=== PATIENT | male | born 1935 | race Caucasian/White ===

== ENCOUNTER 2018-04-20 10:57 | Inpatient (IN) ==
--- NOTE | 2018-04-21 13:17 | Internal Med History&Physical ---
Date of Encounter: 04/21/18 Time of Encounter: 13:12 Assessment and Plan (1) Status post-operative repair of closed fracture of left hip Current visit: Yes Status: Acute Pain controlled with Percocet. PT\OT to eval and treat. Follow up with ortho as scheduled. Will follow progress. (2) Afib Current visit: Yes Status: Acute Rate and rhythm stable. Continue Coumadin. Will follow INR Qualifiers: Atrial fibrillation type: chronic Qualified Code(s): I48.2 - Chronic atrial fibrillation (3) CAD (coronary artery disease) Current visit: Yes Status: Acute Controlled. Continue current medication. Qualifiers: Coronary Disease-Associated Artery/Lesion type: unspecified vessel or lesion type [place] vs. transplanted heart: [place] heart Associated angina: without angina Qualified Code(s): I25.10 - Atherosclerotic heart disease of [place] coronary artery without angina pectoris (4) Diabetes type 2, controlled Current visit: Yes Status: Acute Controlled with PO medication. Monitor fingerstick blood sugar. Will adjust medications as necessary. Qualifiers: Diabetes mellitus assisted insulin use: without assisted use Diabetes mellitus complication status: without complication Qualified Code(s): E11.9 - Type 2 diabetes mellitus without complications Internal Medicine - H&P: HPI Admitted From: Hospital to Hospital Transfer Plans for Post Hospital Care: Home History of present illness: Mr. Garcia is a 82 year old male admitting to inpatient rehab unit s/p left ORIF after a hip fracture from a fall at home. 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 past medical history includes: afib, CAD, DM2, hypercholesterolemia, BPH, HTN, and obesity. states pain is controlled with current pain meds. last BM yesterday. maintaining appetite and hydration. denies fever, chills, NVD, SOB or chest pain. lives at home with . Internal Medicine - H&P: Meds 3 Allergy/AdvReac Type Severity Reaction Status Date / Time No Known Drug Allergies Allergy See Verified 04/21/18 10:01 Comments All Systems PM: A 10-system review of systems was performed and is negative for pertinent findings except as documented above in the HPI. - Constitutional Constitutional: no chills, no fever(s), no night sweats - EENT Eyes: no change in vision, no discharge, no pain, no photophobia Ears: no ear discharge, no ear pain, no tinnitus Nose, mouth and throat: no dysphagia, no nasal discharge, no neck pain, no sore throat - Cardiovascular Cardiovascular ROS IM: no chest pain, no diaphoresis, no dyspnea, no lightheadedness, no palpitations, no syncope - Respiratory Respiratory: no cough, no dyspnea, no wheezing, no excessive phlegm production - Gastrointestinal Gastrointestinal: no abdominal pain, no diarrhea, no hematemesis, no hematochezia, no melena, no nausea, no vomiting - Musculoskeletal Musculoskeletal ROS IM: no numbness, no tingling - Integumentary Integumentary IM: no rash, no unusual bruising - Neurological Neurological ROS: no confusion, no convulsions, no focal weakness, no numbness, no tingling, no tremor(s) - Hematologic/Lymphatic Hematologic/Lymphatic: no easy bruising - Head Head exam: Present: atraumatic, normocephalic - Eye Eye exam: Present: PERRL, conjuntiva pink, sclera anicteric Pupils: Present: PERRL - Neck Neck exam general surgery: Present: supple, trachea midline. Absent: lymphadenopathy - Respiratory Respiratory exam: Present: CTAB. Absent: accessory muscle use, rales, rhonchi, wheezes - Cardiovascular Cardiovascular exam: Present: RRR, +S1, +S2. Absent: diastolic murmur, gallop, rubs, systolic murmur - GI/Abdominal GI/Abdominal exam: Present: normal bowel sounds, soft, no peritoneal signs. Absent: distended, tenderness - Extremities Exam Extremities exam: Present: warm, radial pulses palpable and symmetrical. Absent : calf tenderness, cyanotic, pedal edema Additional comments: left hip drsg dry and intact with slight edema surrounding incision. significant ecchymosis around incision site. - Neurological Exam Neurological exam: Present: CN II-XII intact, oriented X3, no focal deficits. Absent: pronater drift, facial droop, speech deficit - Skin Skin exam: Present: dry, intact
[2018-04-21 14:51] LABS: INR 1.5; Prothrombin Time 16.7 Seconds (9.4-12.1)
[2018-04-21] MEDS: Furosemide 40 MG TABLET PO SCH (17:16)
[2018-04-21] MEDS ORDERED: Warfarin perPT PO PRN (18:00)
[2018-04-21] MEDS ORDERED: *HR* Warfarin 5 MG TABLET PO ONE (18:00)
[2018-04-22 07:16] LABS: Basophils % 0.2 %; Eosinophils # 0.2 K/mcL (0.0-0.6); Eosinophils % 2.7 %; Hematocrit 28.5 % (37.5-50.1); Hemoglobin 9.3 g/dL (12.9-16.9); Immature Granulocytes % 0.7 % (0-4); Lymphocytes # 1.5 K/mcL (0.6-4.6); Mean Corpuscular HGB Conc 32.6 g/dL (31.6-35.5); Mean Corpuscular Hemoglobin 31.7 pg (28.0-33.3); Mean Corpuscular Volume 97.3 fL (83.0-100.0); Mean Platelet Volume 11.1 fL (9.4-12.4); Monocytes # 1.1 K/mcL (0.0-1.3); Monocytes % 12.4 %; Platelet Count 165 K/mcL (140-400); Red Blood Count 2.93 M/mcL (4.19-5.50); Red Cell Distribution Width 13.2 % (11.5-14.5)
[2018-04-22 07:26] LABS: INR 1.6; Prothrombin Time 16.9 Seconds (9.4-12.1)
[2018-04-22 07:29] LABS: Activated Partial Thrombo Time 30.6 Seconds (26.0-36.0)
[2018-04-22 07:35] LABS: BUN/Creatinine Ratio 22 (6-26); Blood Urea Nitrogen 19 mg/dL (8-23); Calcium 8.3 mg/dL (8.6-10.3); Carbon Dioxide 32 mEq/L (23-29); Chloride 99 mEq/L (98-107); Glucose 130 mg/dL (70-105); Osmolality,Calculated 286 (280-300); Potassium 3.9 mEq/L (3.5-5.1); Sodium 136 mEq/L (136-145); eGFR For African Americans > 60 (> 60); eGFR For Non-African Americans > 60 (> 60)
[2018-04-22] MEDS: *HR* Glimepiride 2 MG TABLET PO SCH (09:09)
[2018-04-22] MEDS: Furosemide 40 MG TABLET PO SCH ×2 (09:09→17:58)
--- NOTE | 2018-04-22 13:40 | Physcial Medicine-Consult Note ---
Date of Encounter: 04/22/18 Time of Encounter: 13:00 Physical Medicine - AP (1) Status post-operative repair of closed fracture of left hip Status: Acute Assessment and plan: Good start in therapies. Will remove nichols and voiding trial. Continue rehab. Code(s): Z98.890 - Other specified postprocedural states; Z87.81 - Personal history of (healed) traumatic fracture SNOMED Code(s): 535461880 Physical Medicine - HPI - Data of Consult Requesting Physician: Bhavin Gaytan MD Primary Care Provider: Erasmo Gonzales - Consult Narrative History of present illness: Mr. Garcia is a 82 year old left handed male fell in a parking lot on 04-18-2018 sustaining a left hip fracture. He had ORIF at [facility]. His hip pain is minimal. He is moving his bowels. Appetite is good. He had post op urinary retention and has a nichols catheter. CC: Bhavin Gaytan MD Past Med Surg Social Fam HX - Past Medical History Attestation: Yes The following information was validated with the patient. Medical history: atrial fibrillation, coronary artery disease, diabetes Psychiatric history: no psych history - Past Surgical History Surgical History: orthopedic, other Additional surgical history: ablation ', left knee scope - Social History Smoking Status: Former smoker Alcohol use: occasionally Drug use: none - Family History Father Family Member Ethnicity: Non- Living Status: Age at : 68 Cause of : heart disease Hx Family Cardiac Disorders: Yes Medications and Allergies 3 Allergy/AdvReac Type Severity Reaction Status Date / Time No Known Drug Allergies Allergy See Verified 04/21/18 10:01 Comments All systems: reviewed and no additional remarkable complaints except as stated Physical Medicine - Exam - Constitutional Vitals: Temp Pulse Resp BP Pulse Ox 97.8 F 94 16 122/70 93 04/22/18 11:19 04/22/18 11:19 04/22/18 11:19 04/22/18 11:19 04/22/18 11:19 General appearance: average body habitus, cooperative, no acute distress - Head Head exam: Present: atraumatic, normocephalic - Eye Eye exam: Present: EOMI - ENT ENT exam: Present: mucous membranes moist - Neck Neck exam: Present: full ROM - Respiratory Respiratory exam: Present: CTAB - Cardiovascular Cardiovascular exam: Present: RRR - GI/Abdominal GI/Abdominal exam: Present: normal bowel sounds, soft - Extremities Exam Extremities exam: Absent: full ROM, pedal edema Additional comments: LLE not antigravity hip flexion. Distal strength is good. No CCE - Neurological Exam Neurological exam: Present: abnormal gait, alert, CN II-XII intact, oriented X3 Additional comments: Sensation intact - Psychiatric Psychiatric exam: Present: normal affect, normal mood - Skin Additional comments: Left hip incisions Physical Medicine - Results - Labs CBC & Chem 7: 04/22/18 06:43 04/22/18 06:43 Labs: Short CBC 04/22/18 Range/Units 06:43 WBC 9.0 (4.3-11.1) K/mcL Hgb 9.3 L (12.9-16.9) g/dL Hct 28.5 L (37.5-50.1) % Plt Count 165 (140-400) K/mcL Neutrophils # 6.0 (1.6-8.9) K/mcL BMP 04/22/18 06:43 Sodium 136 Potassium 3.9 Chloride 99 Carbon Dioxide 32 H BUN 19 Creatinine 0.87 Glucose 130 H Calcium 8.3 L Anemia. Hyperglycemia Consult Discharge Plan - Plan Referrals: Erasmo Gonzales [Primary Care Provider] -
[2018-04-22] MEDS: *HR* OxyCODONE/APAP 5/325 TABLET PO PRN (14:33)
--- NOTE | 2018-04-22 15:03 | Internal Med Progress Note ---
Date of Encounter: 04/22/18 Time of Encounter: 15:01 - Assessment and plan (1) Status post-operative repair of closed fracture of left hip Current Visit: Yes Status: Acute Assessment and plan: Continue current pain medication. Continue PT\OT. Will follow progress. Follow up with ortho as scheduled. (2) Afib Current Visit: Yes Status: Acute Assessment and plan: Rate and rhythm controlled. Continue current medication. Qualifiers: Atrial fibrillation type: chronic Qualified Code(s): I48.2 - Chronic atrial fibrillation (3) CAD (coronary artery disease) Current Visit: Yes Status: Acute Assessment and plan: Stable. Continue current medication. Qualifiers: Coronary Disease-Associated Artery/Lesion type: unspecified vessel or lesion type [place] vs. transplanted heart: [place] heart Associated angina: without angina Qualified Code(s): I25.10 - Atherosclerotic heart disease of [place] coronary artery without angina pectoris (4) Diabetes type 2, controlled Current Visit: Yes Status: Acute Assessment and plan: Controlled with PO medication. Monitor fingerstick blood sugar. Will adjust medications as necessary. Qualifiers: Diabetes mellitus termite control service representative insulin use: without termite control service representative use Diabetes mellitus complication status: without complication Qualified Code(s): E11.9 - Type 2 diabetes mellitus without complications - Time Spent With Patient less than 15 minutes - Subjective Interval history: Participating well with therapy. States pain is controlled with current pain medication. Bowels move this morning. Will discontinue Hollingsworth catheter today. Denies fever, chills, nausea, vomiting or diarrhea. Maintaining appetite and hydration. - Constitutional Vitals: Temp Pulse Resp BP Pulse Ox 97.8 F 94 16 122/70 93 04/22/18 11:19 04/22/18 11:19 04/22/18 11:19 04/22/18 11:19 04/22/18 11:19 General appearance: Present: cooperative, A&O X 3, pleasant, no acute distress, answers questions appropriately - Head Head exam: Present: atraumatic, normocephalic - Eye Eye exam: Present: PERRL, conjuntiva pink, sclera anicteric Pupils: Present: PERRL - Neck Neck exam general surgery: Present: supple, trachea midline. Absent: lymphadenopathy - Respiratory Respiratory exam: Present: CTAB. Absent: accessory muscle use, rales, rhonchi, wheezes - Cardiovascular Cardiovascular exam: Present: RRR, +S1, +S2. Absent: diastolic murmur, gallop, rubs, systolic murmur - GI/Abdominal GI/Abdominal exam: Present: normal bowel sounds, soft, no peritoneal signs. Absent: distended, tenderness - Extremities Exam Extremities exam: Present: warm, radial pulses palpable and symmetrical. Absent : calf tenderness, cyanotic, pedal edema - Incison Comments: Left hip dressing dry and intact. No drainage. Moderate amount of ecchymosis surrounding incision site. - Neurological Exam Neurological exam: Present: CN II-XII intact, oriented X3, no focal deficits. Absent: pronater drift, facial droop, speech deficit - Skin Skin exam: Present: dry, intact Internal Medicine: Result - Labs CBC & Chem 7: 04/22/18 06:43 04/22/18 06:43 Labs: Short CBC 04/22/18 Range/Units 06:43 WBC 9.0 (4.3-11.1) K/mcL Hgb 9.3 L (12.9-16.9) g/dL Hct 28.5 L (37.5-50.1) % Plt Count 165 (140-400) K/mcL Neutrophils # 6.0 (1.6-8.9) K/mcL BMP 04/22/18 06:43 Sodium 136 Potassium 3.9 Chloride 99 Carbon Dioxide 32 H BUN 19 Creatinine 0.87 Glucose 130 H Calcium 8.3 L - ABG Interpretation ABG results: PT/INR, D-dimer PT 16.9 Seconds (9.4-12.1) H 04/22/18 06:43 - VTE Documentation of Mechanical Device: Graduated compression elastic hosiery Consult Discharge Plan - Plan Referrals: Erasmo Gonzales [Primary Care Provider] -
[2018-04-22] MEDS: *HR* Warfarin 5 MG TABLET PO SCH (17:58)
[2018-04-23 07:17] LABS: INR 1.7; Prothrombin Time 18.8 Seconds (9.4-12.1)
[2018-04-23] MEDS: Furosemide 40 MG TABLET PO SCH ×2 (08:20→16:50)
[2018-04-23] MEDS: *HR* Glimepiride 2 MG TABLET PO SCH (08:21)
[2018-04-23] MEDS: Acetaminophen 325 MG TABLET PO PRN (08:30)
--- NOTE | 2018-04-23 09:45 | Internal Med Progress Note ---
Date of Encounter: 04/23/18 Time of Encounter: 09:43 - Assessment and plan (1) Status post-operative repair of closed fracture of left hip Current Visit: Yes Status: Acute Assessment and plan: Continue current pain medication. Continue PT\OT. Will follow progress. Follow up with ortho as scheduled. (2) Afib Current Visit: Yes Status: Acute Assessment and plan: Rate and rhythm controlled. Continue current medication. Qualifiers: Atrial fibrillation type: chronic Qualified Code(s): I48.2 - Chronic atrial fibrillation (3) CAD (coronary artery disease) Current Visit: Yes Status: Acute Assessment and plan: Stable. Continue current medication. Qualifiers: Coronary Disease-Associated Artery/Lesion type: unspecified vessel or lesion type [place] vs. transplanted heart: [place] heart Associated angina: without angina Qualified Code(s): I25.10 - Atherosclerotic heart disease of [place] coronary artery without angina pectoris (4) Diabetes type 2, controlled Current Visit: Yes Status: Acute Assessment and plan: Controlled with PO medication. Monitor fingerstick blood sugar. Will adjust medications as necessary. Qualifiers: Diabetes mellitus long term care phlebotomist insulin use: without long term care phlebotomist use Diabetes mellitus complication status: without complication Qualified Code(s): E11.9 - Type 2 diabetes mellitus without complications - Time Spent With Patient less than 15 minutes - Subjective Interval history: Participating well with therapy. States he did not sleep very well last night. States pain is controlled with current pain medication. Bowels moved yesterday. Will discontinue Hollingsworth catheter today. Denies fever, chills, nausea , vomiting or diarrhea. Maintaining appetite and hydration. - Constitutional Vitals: Temp Pulse Resp BP Pulse Ox 97.4 F L 84 20 121/69 92 04/23/18 07:00 04/23/18 07:00 04/23/18 07:00 04/23/18 07:00 04/23/18 07:00 General appearance: Present: cooperative, A&O X 3, pleasant, no acute distress, answers questions appropriately - Head Head exam: Present: atraumatic, normocephalic - Eye Eye exam: Present: PERRL, conjuntiva pink, sclera anicteric Pupils: Present: PERRL - Neck Neck exam general surgery: Present: supple, trachea midline. Absent: lymphadenopathy - Respiratory Respiratory exam: Present: CTAB. Absent: accessory muscle use, rales, rhonchi, wheezes - Cardiovascular Cardiovascular exam: Present: RRR, +S1, +S2. Absent: diastolic murmur, gallop, rubs, systolic murmur - GI/Abdominal GI/Abdominal exam: Present: normal bowel sounds, soft, no peritoneal signs. Absent: distended, tenderness - Extremities Exam Extremities exam: Present: warm, radial pulses palpable and symmetrical. Absent : calf tenderness, cyanotic, pedal edema - Incison Comments: Left hip incision dressing dry and intact. Moderate amount of ecchymosis surrounding incision site. - Neurological Exam Neurological exam: Present: CN II-XII intact, oriented X3, no focal deficits. Absent: pronater drift, facial droop, speech deficit - Skin Skin exam: Present: dry, intact Internal Medicine: Result - Labs CBC & Chem 7: 04/22/18 06:43 04/22/18 06:43 - ABG Interpretation ABG results: PT/INR, D-dimer PT 18.8 Seconds (9.4-12.1) H 04/23/18 07:00 - VTE Documentation of Mechanical Device: Graduated compression elastic hosiery Consult Discharge Plan - Plan Referrals: Erasmo Gonzales [Primary Care Provider] -
[2018-04-23] MEDS: *HR* OxyCODONE/APAP 5/325 TABLET PO PRN (13:10)
[2018-04-23] MEDS: *HR* Warfarin 5 MG TABLET PO SCH (16:51)
[2018-04-23] MEDS: traMADol 50 MG TABLET PO PRN (23:41)
[2018-04-24] MEDS ORDERED: *HR* Enoxaparin 40 MG/0.4 ML SYRINGE SQ SCH (06:00)
[2018-04-24] MEDS: *HR* Enoxaparin 40 MG/0.4 ML SYRINGE SQ SCH (06:25)
[2018-04-24 08:20] LABS: INR 1.9; Prothrombin Time 20.7 Seconds (9.4-12.1)
[2018-04-24] MEDS: *HR* Glimepiride 2 MG TABLET PO SCH (08:26)
[2018-04-24] MEDS: Furosemide 40 MG TABLET PO SCH ×2 (08:26→17:24)
--- NOTE | 2018-04-24 08:49 | Internal Med Progress Note ---
Date of Encounter: 04/24/18 Time of Encounter: 07:40 - Assessment and plan (1) Status post-operative repair of closed fracture of left hip Current Visit: Yes Status: Acute Assessment and plan: We will continue therapies as planned. Will continue Lovenox until Coumadin is therapeutic as this is used both for VTE prophylaxis and atrial fibrillation prophylaxis he states pain is adequately controlled and he tolerated Ultram, well. (2) Afib Current Visit: Yes Status: Acute Assessment and plan: Currently in normal sinus rhythm. On sotalol and Coumadin for treatment. Can have Lovenox discontinued when Coumadin therapeutic. Qualifiers: Atrial fibrillation type: chronic Qualified Code(s): I48.2 - Chronic atrial fibrillation (3) CAD (coronary artery disease) Current Visit: Yes Status: Acute Assessment and plan: Clinically stable with no symptoms for years and none during hospitalization. Qualifiers: Coronary Disease-Associated Artery/Lesion type: unspecified vessel or lesion type [place] vs. transplanted heart: [place] heart Associated angina: without angina Qualified Code(s): I25.10 - Atherosclerotic heart disease of [place] coronary artery without angina pectoris (4) Diabetes type 2, controlled Current Visit: Yes Status: Acute Assessment and plan: Clinically stable and controlled on home regimen and sliding-scale insulin. Qualifiers: Diabetes mellitus remote computer terminal operator insulin use: without prison use Diabetes mellitus complication status: without complication Qualified Code(s): E11.9 - Type 2 diabetes mellitus without complications - Subjective Interval history: Patient with out problems. He asks about possibly getting a handicap sticker. He feels his bladder is functioning well and moved his bowels yesterday. Patient has no complaint of chest discomfort, dyspnea, orthopnea, palpitations, nausea or vomiting, constipation or diarrhea, other changes in bowel habits, difficulty with urination, rash or itching, or other new complaints, except as mentioned above. Review of systems is otherwise negative. - Constitutional Vitals: Temp Pulse Resp BP Pulse Ox 97.9 F 83 16 118/61 92 04/24/18 07:50 04/24/18 07:50 04/24/18 07:50 04/24/18 07:50 04/24/18 07:50 General appearance: Present: cooperative, A&O X 3, pleasant, no acute distress, answers questions appropriately Exam: Examination: (Except as mentioned above): General: In no apparent distress. Alert and oriented 3. Nondiaphoretic. Head: Atraumatic and normocephalic. Respiratory: No use of accessory muscles. Lungs are clear throughout. Normal airflow. Cardiovascular: Regular rate and rhythm without murmur appreciated. No sign of atrial fibrillation or irregularity. Abdomen: Bowel sounds are normal. No hepatosplenomegaly mass or tenderness appreciated. Obese and therefore difficult to palpate deeply. Patient is examined upright in chair and this also limits exam. Extremities: No cyanosis clubbing or edema. Skin: Warm and non-diaphoretic with no new lesions noted. Internal Medicine: Result - Labs CBC & Chem 7: 04/22/18 06:43 04/22/18 06:43 - ABG Interpretation ABG results: PT/INR, D-dimer PT 20.7 Seconds (9.4-12.1) H 04/24/18 06:45 - VTE Documentation of Mechanical Device: Graduated compression elastic hosiery Consult Discharge Plan - Plan Referrals: Erasmo Gonzales [Primary Care Provider] -
[2018-04-24] MEDS: traMADol 50 MG TABLET PO PRN ×2 (14:26→21:01)
[2018-04-24] MEDS: *HR* Warfarin 5 MG TABLET PO SCH (17:23)
[2018-04-25] MEDS: traMADol 50 MG TABLET PO PRN ×4 (02:03→20:50)
[2018-04-25 05:40] LABS: INR 1.8; Prothrombin Time 19.7 Seconds (9.4-12.1)
[2018-04-25] MEDS: *HR* Enoxaparin 40 MG/0.4 ML SYRINGE SQ SCH (06:03)
[2018-04-25] MEDS: Furosemide 40 MG TABLET PO SCH ×2 (08:05→17:28)
[2018-04-25] MEDS: *HR* Glimepiride 2 MG TABLET PO SCH (08:06)
--- NOTE | 2018-04-25 10:34 | Internal Med Progress Note ---
Date of Encounter: 04/25/18 Time of Encounter: 10:32 - Assessment and plan (1) CAD (coronary artery disease) Current Visit: Yes Status: Chronic Assessment and plan: stable no chest pain . continue to monitor and meds Qualifiers: Coronary Disease-Associated Artery/Lesion type: unspecified vessel or lesion type [place] vs. transplanted heart: [place] heart Associated angina: without angina Qualified Code(s): I25.10 - Atherosclerotic heart disease of [place] coronary artery without angina pectoris (2) Diabetes type 2, controlled Current Visit: Yes Status: Chronic Assessment and plan: stable on meds Blood sugars seems to be well controlled Qualifiers: Diabetes mellitus business instructor insulin use: without chcf use Diabetes mellitus complication status: without complication Qualified Code(s): E11.9 - Type 2 diabetes mellitus without complications (3) Status post fracture of right hip Current Visit: Yes Status: Acute Assessment and plan: getting his PT making improvement . he wants to know when he can go home which will most likely be by Friday. Conitnue to / (4) Afib Current Visit: Yes Status: Chronic Assessment and plan: Seems like chronic A fib At the present time he heart rate is stable .On Beta Alie and warfarin . INR still low on Lovenox for DVT prevention.no side affects. Will consider discontinuing Lovenox as although INR low for A fi should still be good for DVT prevention Qualifiers: Atrial fibrillation type: paroxysmal Qualified Code(s): I48.0 - Paroxysmal atrial fibrillation - Subjective Interval history: Cross coverage feels fine no chest pain pains in his hip but well controlled. Slowly improving . he wants to now when he will go home . No fever or chills No SOB - Constitutional Vitals: Temp Pulse Resp BP Pulse Ox 97.8 F 73 16 128/75 95 04/25/18 07:26 04/25/18 07:26 04/25/18 07:26 04/25/18 07:26 04/25/18 07:26 General appearance: Present: cooperative, A&O X 3, pleasant, no acute distress, answers questions appropriately - Head Head exam: Present: atraumatic - Eye Eye exam: Present: EOMI, PERRL - Neck Neck exam general surgery: Present: full ROM, supple. Absent: tenderness, nuchal rigidity - Respiratory Respiratory exam: Present: CTAB. Absent: accessory muscle use, respiratory distress, rhonchi, stridor, wheezes, tachypnea - Cardiovascular Cardiovascular exam: Present: RRR, +S1, +S2. Absent: irregular rhythm, JVD - GI/Abdominal GI/Abdominal exam: Present: normal bowel sounds, soft. Absent: bruit, distended , rigid, tenderness - Extremities Exam Extremities exam: Present: pedal edema. Absent: tenderness Additional comments: + pitting both sides - Incison Incision: Present: clean and dry, intact. Absent: red, swollen, inflamed - Neurological Exam Neurological exam: Present: altered, CN II-XII intact, oriented X3, strengths equal and symetr throughout. Absent: facial droop, speech deficit Additional comments: decrease in weakness due to surgery able to move all limbs Internal Medicine: Result - Labs CBC & Chem 7: 04/22/18 06:43 04/22/18 06:43 - ABG Interpretation ABG results: PT/INR, D-dimer PT 19.7 Seconds (9.4-12.1) H 04/25/18 05:20 - VTE Documentation of Mechanical Device: Graduated compression elastic hosiery Consult Discharge Plan - Plan Referrals: Erasmo Gonzales [Primary Care Provider] -
[2018-04-25] MEDS ORDERED: *HR* Warfarin 3 MG TABLET PO ONE (18:00)
[2018-04-25] MEDS: Melatonin 3 MG TABLET PO PRN (20:52)
[2018-04-26] MEDS: *HR* Enoxaparin 40 MG/0.4 ML SYRINGE SQ SCH (04:33)
[2018-04-26 04:42] LABS: INR 1.9; Prothrombin Time 21.1 Seconds (9.4-12.1)
[2018-04-26] MEDS: *HR* Glimepiride 2 MG TABLET PO SCH (08:27)
[2018-04-26] MEDS: Furosemide 40 MG TABLET PO SCH ×2 (08:27→17:10)
--- NOTE | 2018-04-26 09:26 | Internal Med Progress Note ---
Date of Encounter: 04/26/18 Time of Encounter: 09:24 - Assessment and plan (1) CAD (coronary artery disease) Current Visit: Yes Status: Chronic Assessment and plan: stable actively participating in rehab no complains Qualifiers: Coronary Disease-Associated Artery/Lesion type: unspecified vessel or lesion type [place] vs. transplanted heart: [place] heart Associated angina: without angina Qualified Code(s): I25.10 - Atherosclerotic heart disease of [place] coronary artery without angina pectoris (2) Diabetes type 2, controlled Current Visit: Yes Status: Chronic Assessment and plan: well control continue to follow and adjust med as needed Qualifiers: Diabetes mellitus moth exterminator insulin use: without moth exterminator use Diabetes mellitus complication status: without complication Qualified Code(s): E11.9 - Type 2 diabetes mellitus without complications (3) Status post fracture of right hip Current Visit: Yes Status: Acute Assessment and plan: stable pain is well controlled (4) Afib Current Visit: Yes Status: Chronic Assessment and plan: hx of A fib On warfarin and sotolol INR almost therapeutic d/c Lovenox for DVT prevention Qualifiers: Atrial fibrillation type: paroxysmal Qualified Code(s): I48.0 - Paroxysmal atrial fibrillation - Subjective Interval history: Cross coverage feels fine looking better no new issues today Interested in going home as soon as possible no fever or chills no chest pain no SOB - Constitutional Vitals: Temp Pulse Resp BP Pulse Ox 97.9 F 79 18 127/67 90 04/26/18 07:46 04/26/18 07:46 04/26/18 07:46 04/26/18 07:46 04/26/18 07:46 General appearance: Present: cooperative, A&O X 3, pleasant, no acute distress, answers questions appropriately - Head Head exam: Present: atraumatic - Eye Eye exam: Present: EOMI, PERRL Pupils: Present: PERRL - Neck Neck exam general surgery: Present: full ROM, supple. Absent: tenderness - Respiratory Respiratory exam: Present: CTAB. Absent: chest wall tenderness, respiratory distress, rhonchi, stridor, wheezes, tachypnea - Cardiovascular Cardiovascular exam: Present: RRR, +S1, +S2. Absent: irregular rhythm, JVD - GI/Abdominal GI/Abdominal exam: Present: normal bowel sounds, soft. Absent: distended, firm , guarding, rebound, rigid - Extremities Exam Extremities exam: Present: pedal edema Additional comments: left leg only + right side negative - Incison Incision: Present: clean and dry. Absent: red, swollen, inflamed, erythema, purulent, indurated - Neurological Exam Neurological exam: Present: alert, CN II-XII intact, oriented X3, no focal deficits, strengths equal and symetr throughout. Absent: facial droop, speech deficit Internal Medicine: Result - Labs CBC & Chem 7: 04/22/18 06:43 04/22/18 06:43 - ABG Interpretation ABG results: PT/INR, D-dimer PT 21.1 Seconds (9.4-12.1) H 04/26/18 04:31 - VTE Documentation of Mechanical Device: Graduated compression elastic hosiery Consult Discharge Plan - Plan Referrals: Erasmo Gonzales [Primary Care Provider] -
[2018-04-26] MEDS ORDERED: *HR* Warfarin 3 MG TABLET PO ONE (18:00)
[2018-04-26] MEDS: Melatonin 3 MG TABLET PO PRN (20:30)
[2018-04-27 07:13] LABS: Basophils % 0.4 %; Eosinophils # 0.3 K/mcL (0.0-0.6); Eosinophils % 2.6 %; Hematocrit 29.4 % (37.5-50.1); Hemoglobin 9.5 g/dL (12.9-16.9); Lymphocytes # 1.7 K/mcL (0.6-4.6); Lymphocytes % 17.5 %; Mean Corpuscular HGB Conc 32.3 g/dL (31.6-35.5); Mean Corpuscular Hemoglobin 31.9 pg (28.0-33.3); Mean Corpuscular Volume 98.7 fL (83.0-100.0); Monocytes # 1.1 K/mcL (0.0-1.3); Monocytes % 11.4 %; Neutrophils # 6.4 K/mcL (1.6-8.9); Platelet Count 250 K/mcL (140-400); Red Blood Count 2.98 M/mcL (4.19-5.50); Red Cell Distribution Width 13.9 % (11.5-14.5); Segmented Neutrophils % 67.1 %
[2018-04-27 07:20] LABS: Prothrombin Time 21.9 Seconds (9.4-12.1)
[2018-04-27 07:22] LABS: Activated Partial Thrombo Time 32.8 Seconds (26.0-36.0)
[2018-04-27 07:24] LABS: BUN/Creatinine Ratio 27 (6-26); Blood Urea Nitrogen 24 mg/dL (8-23); Calcium 8.4 mg/dL (8.6-10.3); Carbon Dioxide 32 mEq/L (23-29); Chloride 100 mEq/L (98-107); Glucose 126 mg/dL (70-105); Osmolality,Calculated 292 (280-300); Potassium 3.4 mEq/L (3.5-5.1); Sodium 138 mEq/L (136-145); eGFR For African Americans > 60 (> 60); eGFR For Non-African Americans > 60 (> 60)
[2018-04-27] MEDS: *HR* Glimepiride 2 MG TABLET PO SCH (08:29)
[2018-04-27] MEDS: traMADol 50 MG TABLET PO PRN ×2 (08:29→15:08)
[2018-04-27] MEDS: Furosemide 40 MG TABLET PO SCH ×2 (08:29→16:56)
--- NOTE | 2018-04-27 14:14 | Internal Med Progress Note ---
Date of Encounter: 04/27/18 Time of Encounter: 14:10 - Assessment and plan (1) Status post-operative repair of closed fracture of left hip Current Visit: Yes Status: Acute Assessment and plan: Continue current pain medication. Continue PT\OT. Will follow progress. Follow up with ortho as scheduled. (2) Afib Current Visit: Yes Status: Chronic Assessment and plan: Rate and rhythm controlled. Continue current medication. Qualifiers: Atrial fibrillation type: paroxysmal Qualified Code(s): I48.0 - Paroxysmal atrial fibrillation (3) CAD (coronary artery disease) Current Visit: Yes Status: Chronic Assessment and plan: Stable. Continue current medication. Qualifiers: Coronary Disease-Associated Artery/Lesion type: unspecified vessel or lesion type [place] vs. transplanted heart: [place] heart Associated angina: without angina Qualified Code(s): I25.10 - Atherosclerotic heart disease of [place] coronary artery without angina pectoris (4) Diabetes type 2, controlled Current Visit: Yes Status: Chronic Assessment and plan: Controlled with PO medication. Monitor fingerstick blood sugar. Will adjust medications as necessary. Qualifiers: Diabetes mellitus mcfp insulin use: without mcfp use Diabetes mellitus complication status: without complication Qualified Code(s): E11.9 - Type 2 diabetes mellitus without complications - Time Spent With Patient less than 15 minutes - Subjective Interval history: Participating well with therapy. States pain is controlled with current pain medication. Bowels moved yesterday. Denies fever, chills, nausea, vomiting or diarrhea. Maintaining appetite and hydration. Planning to discharge home on April 29 with . - Constitutional Vitals: Temp Pulse Resp BP Pulse Ox 97.4 F L 80 22 132/83 90 04/27/18 07:30 04/27/18 07:30 04/27/18 07:30 04/27/18 07:30 04/27/18 07:30 General appearance: Present: cooperative, A&O X 3, pleasant, no acute distress, answers questions appropriately - Head Head exam: Present: atraumatic, normocephalic - Eye Eye exam: Present: PERRL, conjuntiva pink, sclera anicteric Pupils: Present: PERRL - Neck Neck exam general surgery: Present: supple, trachea midline. Absent: lymphadenopathy - Respiratory Respiratory exam: Present: CTAB. Absent: accessory muscle use, rales, rhonchi, wheezes - Cardiovascular Cardiovascular exam: Present: RRR, +S1, +S2. Absent: diastolic murmur, gallop, rubs, systolic murmur - GI/Abdominal GI/Abdominal exam: Present: normal bowel sounds, soft, no peritoneal signs. Absent: distended, tenderness - Extremities Exam Extremities exam: Present: warm, radial pulses palpable and symmetrical. Absent : calf tenderness, cyanotic, pedal edema - Incison Comments: Left hip dressing dry and intact. Scattered ecchymosis around incision site. - Neurological Exam Neurological exam: Present: CN II-XII intact, oriented X3, no focal deficits. Absent: pronater drift, facial droop, speech deficit - Skin Skin exam: Present: dry, intact Internal Medicine: Result - Labs CBC & Chem 7: 04/27/18 06:40 04/27/18 06:40 Labs: Short CBC 04/27/18 Range/Units 06:40 WBC 9.6 (4.3-11.1) K/mcL Hgb 9.5 L (12.9-16.9) g/dL Hct 29.4 L (37.5-50.1) % Plt Count 250 D (140-400) K/mcL Neutrophils # 6.4 (1.6-8.9) K/mcL BMP 04/27/18 06:40 Sodium 138 Potassium 3.4 L Chloride 100 Carbon Dioxide 32 H BUN 24 H Creatinine 0.90 Glucose 126 H Calcium 8.4 L - ABG Interpretation ABG results: PT/INR, D-dimer PT 21.9 Seconds (9.4-12.1) H 04/27/18 06:40 - VTE Documentation of Mechanical Device: Graduated compression elastic hosiery Consult Discharge Plan - Plan Referrals: Erasmo Gonzales [Primary Care Provider] -
[2018-04-27] MEDS: *HR* Warfarin 3 MG TABLET PO SCH (16:56)
[2018-04-27] MEDS: Melatonin 3 MG TABLET PO PRN (21:10)
[2018-04-28] MEDS: traMADol 50 MG TABLET PO PRN ×3 (00:16→14:32)
[2018-04-28 05:48] LABS: BUN/Creatinine Ratio 26 (6-26); Blood Urea Nitrogen 24 mg/dL (8-23); Calcium 8.6 mg/dL (8.6-10.3); Carbon Dioxide 33 mEq/L (23-29); Chloride 101 mEq/L (98-107); Glucose 118 mg/dL (70-105); Osmolality,Calculated 293 (280-300); Potassium 3.8 mEq/L (3.5-5.1); Sodium 139 mEq/L (136-145); eGFR For African Americans > 60 (> 60); eGFR For Non-African Americans > 60 (> 60)
[2018-04-28 06:18] LABS: INR 2.2; Prothrombin Time 23.6 Seconds (9.4-12.1)
[2018-04-28] MEDS: *HR* Glimepiride 2 MG TABLET PO SCH (08:18)
[2018-04-28] MEDS: Furosemide 40 MG TABLET PO SCH ×2 (08:18→16:57)
--- NOTE | 2018-04-28 10:53 | Internal Med Progress Note ---
Date of Encounter: 04/28/18 Time of Encounter: 10:51 - Assessment and plan (1) Status post-operative repair of closed fracture of left hip Current Visit: Yes Status: Acute Assessment and plan: Continue current pain medication. Continue PT\OT. Will follow progress. Follow up with ortho as scheduled. (2) Afib Current Visit: Yes Status: Chronic Assessment and plan: Rate and rhythm controlled. Continue current medication. INR therapuetic. will D/C lovenox and continue coumadin. Qualifiers: Atrial fibrillation type: paroxysmal Qualified Code(s): I48.0 - Paroxysmal atrial fibrillation (3) CAD (coronary artery disease) Current Visit: Yes Status: Chronic Assessment and plan: Stable. Continue current medication. Qualifiers: Coronary Disease-Associated Artery/Lesion type: unspecified vessel or lesion type [place] vs. transplanted heart: [place] heart Associated angina: without angina Qualified Code(s): I25.10 - Atherosclerotic heart disease of [place] coronary artery without angina pectoris (4) Diabetes type 2, controlled Current Visit: Yes Status: Chronic Assessment and plan: Controlled with PO medication. Monitor fingerstick blood sugar. Will adjust medications as necessary. Qualifiers: Diabetes mellitus mechanical maintenance insulin use: without intermediate use Diabetes mellitus complication status: without complication Qualified Code(s): E11.9 - Type 2 diabetes mellitus without complications - Time Spent With Patient less than 15 minutes - Subjective Interval history: Participating well with therapy. States pain is controlled with current pain medication. Bowels moved 2 days ago. will take laxative if no BM today. Denies fever, chills, nausea, vomiting or diarrhea. Maintaining appetite and hydration. at bedside. - Constitutional Vitals: Temp Pulse Resp BP Pulse Ox 97.7 F 75 14 125/68 93 04/28/18 07:15 04/28/18 07:15 04/28/18 07:15 04/28/18 07:15 04/28/18 07:15 General appearance: Present: cooperative, A&O X 3, pleasant, no acute distress, answers questions appropriately - Head Head exam: Present: atraumatic, normocephalic - Eye Eye exam: Present: PERRL, conjuntiva pink, sclera anicteric Pupils: Present: PERRL - Neck Neck exam general surgery: Present: supple, trachea midline. Absent: lymphadenopathy - Respiratory Respiratory exam: Present: CTAB. Absent: accessory muscle use, rales, rhonchi, wheezes - Cardiovascular Cardiovascular exam: Present: RRR, +S1, +S2. Absent: diastolic murmur, gallop, rubs, systolic murmur - GI/Abdominal GI/Abdominal exam: Present: normal bowel sounds, soft, no peritoneal signs. Absent: distended, tenderness - Extremities Exam Extremities exam: Present: warm, radial pulses palpable and symmetrical. Absent : calf tenderness, cyanotic, pedal edema - Neurological Exam Neurological exam: Present: CN II-XII intact, oriented X3, no focal deficits. Absent: pronater drift, facial droop, speech deficit - Skin Skin exam: Present: dry, intact Internal Medicine: Result - Labs CBC & Chem 7: 04/27/18 06:40 04/28/18 05:10 Labs: BMP 04/28/18 05:10 Sodium 139 Potassium 3.8 Chloride 101 Carbon Dioxide 33 H BUN 24 H Creatinine 0.93 Glucose 118 H Calcium 8.6 - ABG Interpretation ABG results: PT/INR, D-dimer PT 23.6 Seconds (9.4-12.1) H 04/28/18 05:10 - VTE Documentation of Mechanical Device: Graduated compression elastic hosiery Consult Discharge Plan - Plan Referrals: Erasmo Gonzales [Primary Care Provider] -
[2018-04-28] MEDS: *HR* Warfarin 3 MG TABLET PO SCH (16:57)
[2018-04-28] MEDS: Melatonin 3 MG TABLET PO PRN (20:43)
[2018-04-29] MEDS: traMADol 50 MG TABLET PO PRN ×3 (00:57→16:05)
[2018-04-29 05:27] LABS: INR 2.2; Prothrombin Time 24.6 Seconds (9.4-12.1)
--- NOTE | 2018-04-29 08:45 | Internal Med Progress Note ---
Date of Encounter: 04/29/18 Time of Encounter: 08:43 - Assessment and plan (1) Status post-operative repair of closed fracture of left hip Current Visit: Yes Status: Acute Assessment and plan: We will continue therapies as planned. He is on chronic Coumadin which will prevent DVT, as well. Plan discharge in 2 days. (2) Afib Current Visit: Yes Status: Chronic Qualifiers: Atrial fibrillation type: paroxysmal Qualified Code(s): I48.0 - Paroxysmal atrial fibrillation (3) CAD (coronary artery disease) Current Visit: Yes Status: Chronic Assessment and plan: Clinically stable with no symptoms for years and none during hospitalization. Qualifiers: Coronary Disease-Associated Artery/Lesion type: unspecified vessel or lesion type [place] vs. transplanted heart: [place] heart Associated angina: without angina Qualified Code(s): I25.10 - Atherosclerotic heart disease of [place] coronary artery without angina pectoris (4) Diabetes type 2, controlled Current Visit: Yes Status: Chronic Assessment and plan: Clinically stable and controlled on home regimen and sliding-scale insulin. Per 's request, we will decreased frequency of Accu-Cheks. Qualifiers: Diabetes mellitus terminal operations supervisor insulin use: without terminal operations supervisor use Diabetes mellitus complication status: without complication Qualified Code(s): E11.9 - Type 2 diabetes mellitus without complications - Subjective Interval history: Patient is feeling fine and is anticipating discharge in a couple of days. He moved his bowels yesterday. Continues to pass urine adequately without complication. Patient has no complaint of chest discomfort, dyspnea, orthopnea, palpitations, nausea or vomiting, constipation or diarrhea, other changes in bowel habits, difficulty with urination, rash or itching, or other new complaints, except as mentioned above. Review of systems is otherwise negative. - Constitutional Vitals: Temp Pulse Resp BP Pulse Ox 97.4 F L 74 14 127/74 92 04/29/18 07:32 04/29/18 07:32 04/29/18 07:32 04/29/18 07:32 04/29/18 07:32 General appearance: Present: cooperative, A&O X 3, pleasant, no acute distress, answers questions appropriately Exam: Examination: (Except as mentioned above): General: In no apparent distress. Alert and oriented 3. Nondiaphoretic. Head: Atraumatic and normocephalic. Respiratory: No use of accessory muscles. Lungs are clear throughout. Normal airflow. Cardiovascular: Regular rate and rhythm without murmur appreciated. Abdomen: Bowel sounds are normal. No hepatosplenomegaly mass or tenderness appreciated. Obese and therefore difficult to palpate deeply. Patient is examined upright in chair and this also limits exam. Extremities: No cyanosis clubbing or edema. Skin: Warm and non-diaphoretic with no new lesions noted. Internal Medicine: Result - Labs CBC & Chem 7: 04/27/18 06:40 04/28/18 05:10 - ABG Interpretation ABG results: PT/INR, D-dimer PT 24.6 Seconds (9.4-12.1) H 04/29/18 04:55 - VTE Documentation of Mechanical Device: Graduated compression elastic hosiery Consult Discharge Plan - Plan Referrals: Erasmo Gonzales [Primary Care Provider] -
[2018-04-29] MEDS: *HR* Glimepiride 2 MG TABLET PO SCH (09:12)
[2018-04-29] MEDS: Furosemide 40 MG TABLET PO SCH ×2 (09:12→16:01)
--- NOTE | 2018-04-29 10:56 | Internal Med Progress Note ---
Date of Encounter: 04/29/18 Time of Encounter: 10:54 - Assessment and plan (1) Status post-operative repair of closed fracture of left hip Current Visit: Yes Status: Acute Assessment and plan: Continue current pain medication. Continue PT\OT. Will follow progress. Follow up with ortho as scheduled. (2) Afib Current Visit: Yes Status: Chronic Assessment and plan: Rate and rhythm controlled. Continue current medication. INR therapuetic. continue coumadin. Qualifiers: Atrial fibrillation type: paroxysmal Qualified Code(s): I48.0 - Paroxysmal atrial fibrillation (3) CAD (coronary artery disease) Current Visit: Yes Status: Chronic Assessment and plan: Stable. Continue current medication. Qualifiers: Coronary Disease-Associated Artery/Lesion type: unspecified vessel or lesion type [place] vs. transplanted heart: [place] heart Associated angina: without angina Qualified Code(s): I25.10 - Atherosclerotic heart disease of [place] coronary artery without angina pectoris (4) Diabetes type 2, controlled Current Visit: Yes Status: Chronic Assessment and plan: Controlled with PO medication. Monitor fingerstick blood sugar. Will adjust medications as necessary. Qualifiers: Diabetes mellitus detention insulin use: without detention use Diabetes mellitus complication status: without complication Qualified Code(s): E11.9 - Type 2 diabetes mellitus without complications - Time Spent With Patient less than 15 minutes - Subjective Interval history: Participating well with therapy. ambulating in hallway with walker with CGA. States pain is controlled with current pain medication. Bowels moved yesterday. fever, chills, nausea, vomiting or diarrhea. Maintaining appetite and hydration. was here for family training yesterday. scheduled for discharge on 05/01. - Constitutional Vitals: Temp Pulse Resp BP Pulse Ox 97.4 F L 74 14 127/74 92 04/29/18 07:32 04/29/18 07:32 04/29/18 07:32 04/29/18 07:32 04/29/18 07:32 General appearance: Present: cooperative, A&O X 3, pleasant, no acute distress, answers questions appropriately - Head Head exam: Present: atraumatic, normocephalic - Eye Eye exam: Present: PERRL, conjuntiva pink, sclera anicteric Pupils: Present: PERRL - Neck Neck exam general surgery: Present: supple, trachea midline. Absent: lymphadenopathy - Respiratory Respiratory exam: Present: CTAB. Absent: accessory muscle use, rales, rhonchi, wheezes - Cardiovascular Cardiovascular exam: Present: RRR, +S1, +S2. Absent: diastolic murmur, gallop, rubs, systolic murmur - GI/Abdominal GI/Abdominal exam: Present: normal bowel sounds, soft, no peritoneal signs. Absent: distended, tenderness - Extremities Exam Extremities exam: Present: warm, radial pulses palpable and symmetrical. Absent : calf tenderness, cyanotic, pedal edema Additional comments: left hip drsg dry and intact, healing ecchymosis around incision site. - Neurological Exam Neurological exam: Present: CN II-XII intact, oriented X3, no focal deficits. Absent: pronater drift, facial droop, speech deficit - Skin Skin exam: Present: dry, intact Internal Medicine: Result - Labs CBC & Chem 7: 04/27/18 06:40 04/28/18 05:10 - ABG Interpretation ABG results: PT/INR, D-dimer PT 24.6 Seconds (9.4-12.1) H 04/29/18 04:55 - VTE Documentation of Mechanical Device: Graduated compression elastic hosiery Consult Discharge Plan - Plan Referrals: Erasmo Gonzales [Primary Care Provider] -
[2018-04-29] MEDS: *HR* Warfarin 3 MG TABLET PO SCH (17:41)
[2018-04-29] MEDS: Melatonin 3 MG TABLET PO PRN (20:03)
[2018-04-30 05:48] LABS: INR 2.2; Prothrombin Time 24.4 Seconds (9.4-12.1)
[2018-04-30 06:05] LABS: BUN/Creatinine Ratio 26 (6-26); Blood Urea Nitrogen 27 mg/dL (8-23); Calcium 8.6 mg/dL (8.6-10.3); Carbon Dioxide 33 mEq/L (23-29); Chloride 100 mEq/L (98-107); Glucose 113 mg/dL (70-105); Osmolality,Calculated 290 (280-300); Potassium 3.8 mEq/L (3.5-5.1); Sodium 137 mEq/L (136-145); eGFR For African Americans > 60 (> 60); eGFR For Non-African Americans > 60 (> 60)
[2018-04-30] MEDS: *HR* Glimepiride 2 MG TABLET PO SCH (08:42)
[2018-04-30] MEDS: Furosemide 40 MG TABLET PO SCH ×2 (08:43→17:23)
[2018-04-30] MEDS: traMADol 50 MG TABLET PO PRN ×2 (08:44→21:12)
--- NOTE | 2018-04-30 12:31 | Discharge Summary ---
Orders not resulted at time of discharge: Pending orders 05/01/18 04:00 PT/INR [Prothrombin Time INR] [COAG] AM 0400 05/02/18 04:00 PT/INR [Prothrombin Time INR] [COAG] AM 0400 05/03/18 04:00 PT/INR [Prothrombin Time INR] [COAG] AM 0400 05/04/18 04:00 Activated Partial Thrombo Time [COAG] MO Basic Metabolic Panel MO Complete Blood Count [HEME] MO PT/INR [Prothrombin Time INR] [COAG] AM 0400 05/05/18 04:00 PT/INR [Prothrombin Time INR] [COAG] AM 0400 05/06/18 04:00 PT/INR [Prothrombin Time INR] [COAG] AM 0400 05/07/18 04:00 PT/INR [Prothrombin Time INR] [COAG] AM 0400 05/08/18 04:00 PT/INR [Prothrombin Time INR] [COAG] AM 0400 05/09/18 04:00 PT/INR [Prothrombin Time INR] [COAG] AM 0400 05/10/18 04:00 PT/INR [Prothrombin Time INR] [COAG] AM 0400 05/11/18 04:00 Activated Partial Thrombo Time [COAG] MO Basic Metabolic Panel MO Complete Blood Count [HEME] MO PT/INR [Prothrombin Time INR] [COAG] AM 0400 05/12/18 04:00 PT/INR [Prothrombin Time INR] [COAG] AM 0400 05/13/18 04:00 PT/INR [Prothrombin Time INR] [COAG] AM 0400 05/14/18 04:00 PT/INR [Prothrombin Time INR] [COAG] AM 0400 05/15/18 04:00 PT/INR [Prothrombin Time INR] [COAG] AM 0400 05/16/18 04:00 PT/INR [Prothrombin Time INR] [COAG] AM 0400 05/17/18 04:00 PT/INR [Prothrombin Time INR] [COAG] AM 0400 05/18/18 04:00 Activated Partial Thrombo Time [COAG] MO Basic Metabolic Panel MO Complete Blood Count [HEME] MO PT/INR [Prothrombin Time INR] [COAG] AM 0400 05/19/18 04:00 PT/INR [Prothrombin Time INR] [COAG] AM 0400 05/20/18 04:00 PT/INR [Prothrombin Time INR] [COAG] AM 0 05/21/18 04:00 PT/INR [Prothrombin Time INR] [COAG] AM 0 05/25/18 04:00 Activated Partial Thrombo Time [COAG] MO Basic Metabolic Panel MO Complete Blood Count [HEME] MO 06/01/18 04:00 Activated Partial Thrombo Time [COAG] MO Basic Metabolic Panel MO Complete Blood Count [HEME] MO Date of Encounter: 04/30/18 Time of Encounter: 12:29 - Discharge Diagnosis (1) Status post-operative repair of closed fracture of left hip Priority: Primary Status: Acute Comments: Surgical wound appears to be healing well. No issues during stay at facility. Patient to continue with PT/OT by outpatient visits. Continued f/u and management with orthopedic surgeon. (2) Afib Priority: Secondary Status: Chronic Comments: No acute issues. HR controlled <100 bpm. Patient to continue home meds and coumadin with f/u with Cardiology/PCP. Qualifiers: Atrial fibrillation type: paroxysmal Qualified Code(s): I48.0 - Paroxysmal atrial fibrillation (3) CAD (coronary artery disease) Priority: Secondary Status: Chronic Comments: No acute issues. Continue on home meds and f/u with Cardiology/PCP Qualifiers: Coronary Disease-Associated Artery/Lesion type: unspecified vessel or lesion type [place] vs. transplanted heart: [place] heart Associated angina: without angina Qualified Code(s): I25.10 - Atherosclerotic heart disease of [place] coronary artery without angina pectoris (4) Diabetes type 2, controlled Priority: Secondary Status: Chronic Comments: No acute issues. DM controlled with current medication regimen. Will continue home meds and f/u with PCP Qualifiers: Diabetes mellitus assisted insulin use: without product analyst use Diabetes mellitus complication status: without complication Qualified Code(s): E11.9 - Type 2 diabetes mellitus without complications (5) BPH (benign prostatic hyperplasia) Priority: Secondary Status: Acute Comments: Patient has had issues with frequency and incontinence. Post void residual being tracked. Will continue with current meds and recommend f/u with Urology/ PCP Qualifiers: Lower urinary tract symptom presence: unspecified whether lower urinary tract symptoms present Qualified Code(s): N40.0 - Benign prostatic hyperplasia without lower urinary tract symptoms Hospital course: Mr. Garcia is a 82 year old male admitted to inpatient rehab unit s/p left ORIF after a hip fracture from a fall at home. 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 Patient had an uncomplicated surgical recover postoperatively. He had no acute issue during his stay at Rehab faciltiy and progressed well with PT/OT. Surgical incision appears healthy and has healed well. His pain has been well controlled with current oral meds. DM has been well controlled with oral DM regimen. Afib with controlled rate <100. His past medical history includes: afib, CAD, DM2, hypercholesterolemia, BPH, HTN, and obesity. Discharge discussed with: patient Time spent discussing smoking cessation with patient: 3 to 10 minutes - Time Spent with Patient Total time spent providing and/or coordinating discharge services: Less than 30 minutes - Discharge Medications Allergies/Adverse Reactions: 3 Allergy/AdvReac Type Severity Reaction Status Date / Time No Known Drug Allergies Allergy See Verified 04/21/18 10:01 Comments Date of admission: 04/21/18 12:30 Primary care physician: Erasmo Gonzales Consults: 04/21/18 10:14 Consult to Occupational Therapy [CONS] Routine Comment: Evaluate, develop and implement POC Reason for Consult: LT HIP REPLACEMENT Does patient have active BEDREST order?: No Is patient medically & hemodynamically stable?: Yes Patient assessed for mobility or mobilized this visit?: Yes Consult to Physical Medicine/Rehab [CONS] Routine Reason for Consult: LT HIP PREPLACEMENT Call Completed: No Consult to Physical Therapy [CONS] Routine Comment: Evaluate, develop and implement POC Reason for Consult: LT HIP REPLACEMENT Does patient have active BEDREST order?: No Is patient medically & hemodynamically stable?: Yes Patient assessed for mobility or mobilized this visit?: Yes Consult to Accountant Machine Processing [CONS] Routine Reason for SW Consult: S/P LT HIP REPLACEMENT 04/21/18 13:21 Consult to Recreational Therapy [CONS] Routine Comment: lt hip replacement Discharging clinician: Bhavin Gaytan Anticipated date of discharge: 05/01/18 - Constitutional Vitals: Temp Pulse Resp BP Pulse Ox 97.7 F 78 16 130/69 93 04/30/18 06:38 04/30/18 06:38 04/30/18 06:38 04/30/18 06:38 04/30/18 06:38 General appearance: Present: cooperative, A&O X 3, pleasant, no acute distress, answers questions appropriately - Head Head exam: Present: atraumatic, normocephalic - Eye Eye exam: Present: PERRL, conjuntiva pink, sclera anicteric Pupils: Present: PERRL - Neck Neck exam general surgery: Present: supple, trachea midline. Absent: lymphadenopathy - Respiratory Respiratory exam: Present: CTAB. Absent: accessory muscle use, rales, rhonchi, wheezes - Cardiovascular Cardiovascular exam: Present: irregular rhythm, RRR, +S1, +S2. Absent: diastolic murmur, gallop, rubs, systolic murmur - GI/Abdominal GI/Abdominal exam: Present: normal bowel sounds, soft, no peritoneal signs. Absent: distended, tenderness - Extremities Exam Extremities exam: Present: warm, radial pulses palpable and symmetrical. Absent : calf tenderness, cyanotic, pedal edema Additional comments: left hip surgical incision appears intact and healthy. - Neurological Exam Neurological exam: Present: CN II-XII intact, oriented X3, no focal deficits. Absent: pronater drift, facial droop, speech deficit - Skin Skin exam: Present: dry, intact - Patient Status Disposition: Home, Self-Care Condition: Good Functional capacity at discharge: uses cane/walker Overall status at discharge: patient is progressing back to baseline - Discharge Instructions Follow Up With: Erasmo Gonzales [Primary Care Provider] - - Diet and Activity Activity: ambulate only with your walker, as per physical therapy, increase activity as tolerated Diet: diabetic diet - VTE Documentation of Mechanical Device: Graduated compression elastic hosiery
[2018-04-30] MEDS: Acetaminophen 325 MG TABLET PO PRN (13:54)
[2018-04-30] MEDS: *HR* Warfarin 3 MG TABLET PO SCH (17:23)
[2018-04-30] MEDS: Melatonin 3 MG TABLET PO PRN (21:10)
[2018-05-01 06:36] LABS: INR 2.4; Prothrombin Time 26.5 Seconds (9.4-12.1)
[2018-05-01] MEDS: traMADol 50 MG TABLET PO PRN (08:34)
[2018-05-01] MEDS: *HR* Glimepiride 2 MG TABLET PO SCH (08:34)
[2018-05-01] MEDS: Furosemide 40 MG TABLET PO SCH (08:34)
[2018-05-01 09:00] VITALS: BP 113/59
--- NOTE | 2018-05-01 11:17 | Event Note ---
Date of Encounter: 05/01/18 Time of Encounter: 11:16 Patient appears relaxed and remains without complaints. Surgical wound remains healthy. DC to home with family.
== END 2018-05-01 12:30 | disposition home or self-care (01) | DRG 561 ==
LOC: INPGRE 04-21 12:30